=== PATIENT | female | born 1995 | race Caucasian/White ===

== ENCOUNTER → 2016-08-16 | Outpatient (CLI) | payer BC ==
[2016-08-17 15:53] LABS: CHLAMYDIA TRACH RNA*** NOT DETECTED (NOT DETECTED); GC (NEIS GONORRHOEAE)RNA** NOT DETECTED (NOT DETECTED)
== END | disposition home or self-care (01) ==
LOC: C.LABSPEC 11:43
PROVIDERS: ATTEND Obstetrics & Gynecology
DX: Z01.419 Encounter for gynecological examination (general) (routine) without abnormal findings (principal)

== ENCOUNTER → 2017-11-06 | Outpatient (CLI) | payer BC, OTHER | END | disposition home or self-care (01) | LOC: C.PAPS 18:05 | PROVIDERS: ATTEND Obstetrics & Gynecology | DX: Z12.4 Encounter for screening for malignant neoplasm of cervix (principal) ==

== ENCOUNTER → 2017-11-06 | Outpatient (CLI) | payer BC, OTHER | END | disposition home or self-care (01) | LOC: C.LABSPEC 16:29 | PROVIDERS: ATTEND Obstetrics & Gynecology | DX: Z12.4 Encounter for screening for malignant neoplasm of cervix (principal); N63.20 Unspecified lump in the left breast, unspecified quadrant ==

== ENCOUNTER → 2017-11-12 | Outpatient (CLI) | payer BC ==
--- NOTE | 2017-11-12 15:13 | MAMMOGRAPHY REPORT ---
ULTRASOUND OF LEFT BREAST: 11/12/2017 CLINICAL HISTORY: 22-year-old woman presents after her provider felt a lump in the 1:00 left breast o n recent physical exam. Patient notes the lump as well, which she describes is slightly larger than a dime. No skin erythema or thickening. No nipple discharge. No family history of breast cancer. COMPARISON: No prior exams were available for comparison. FINDINGS: The patient pointed out the lump in the 1:00 left breast, 3 cm from the nipple. On palpati on, there is a 1-1-1/2 cm mobile firm mass. Targeted ultrasound performed directly over the mass dem onstrates a gently lobulated parallel hypoechoic solid mass measuring approximately 13.0 x 8.6 x 17.5 mm. Although this most likely represents a fibroadenoma, definitive characterization with an ultras ound-guided core biopsy is recommended. IMPRESSION: ACR BI-RADS CATEGORY 4: SUSPICIOUS Left breast ultrasound-guided core biopsy is recommended for a solid palpable 17.5 mm mass in the 1:0 0 axis, initially palpated by the patient's provider on recent physical exam. These results and recommendations were discussed with the patient at the time of the exam. She tenta tively scheduled the left breast biopsy prior to leaving the department. Apolonia Croft M.D. ay/:11/12/2017 14:52:22 [employer]: RT Russell(Carli)(M), [facility] letter sent: Abnormal 4/5 BI-RADS Code: ACR BI-RADS Category 4: Suspicious
== END | disposition home or self-care (01) ==
LOC: C.MAMM 13:37
PROVIDERS: ATTEND Obstetrics & Gynecology
DX: N63.21 Unspecified lump in the left breast, upper outer quadrant (principal)